=== PATIENT | male | born 1995 | race African-American/Black ===

== ENCOUNTER → 2020-10-01 | Emergency (ER) | payer MEDICAID ==
[~2020-10-01] VITALS: Ht 172.7 cm; Wt 70.3 kg
[~2020-10-01] MED LIST: MORPHINE SULFATE 4 MG/ML SYR/VIAL IV ONE; NALOXONE HCL 0.4 MG/ML VIAL ONE; ONDANSETRON HCL 4 MG/2 ML VIAL IV ONE
[2020-10-01 05:43] LABS: Basophils # (auto) 0 10 ^3/uL (0-0.2); Basophils % (auto) 0.2 % (0.0-2.0); Eosinophils # (auto) 0 10 ^3/uL (0-0.8); Eosinophils % (auto) 0.1 % (0.0-7.0); Hematocrit 49.2 % (41.0-53.0); Hemoglobin 16.8 g/dL (13.5-17.5); Lymphocytes # (auto) 0.6 10 ^3/uL (0.4-5.4); Lymphocytes % (auto) 5.7 % (10.0-50.0); Mean Corpuscular Hemoglobin 29.3 pg (28.0-32.0); Mean Corpuscular Hgb Conc. 34.2 g/dL (32.0-36.0); Mean Corpuscular Volume 85.5 fL (80.0-100.0); Monocytes # (auto) 0.8 10 ^3/uL (0-1.3); Monocytes % (auto) 7.3 % (0.0-12.0); Neutrophils % (auto) 86.7 % (37.0-80.0); Red Blood Cells 5.75 10^6/uL (4.5-5.90); Red Cell Distribution Width 15.4 % (11.8-14.3); White Blood Cell 10.3 10^3/uL (4.4-10.8)
[2020-10-01 06:14] LABS: Albumin 4.6 g/dL (3.4-5.0); Calcium 8.9 mg/dL (8.5-10.1); Magnesium 2.6 mg/dL (1.6-2.6); Potassium 3.7 mmol/L (3.5-5.1)
[2020-10-01 06:22] LABS: INR 1.19 (0.9-1.15); Partial Thromboplastin Time 25.4 sec (23.0-31.2)
[2020-10-01 06:23] LABS: Bilirubin, Total 2.1 mg/dL (0.2-1.0); Total Protein 8.9 g/dL (6.4-8.2)
[2020-10-01 07:37] VITALS: BP 116/64
== END | disposition home or self-care (01) ==
LOC: EDUNIT# 03:34 → EDBD 03:43 → ER 03:43
DX: S30.1XXA Contusion of abdominal wall, initial encounter (principal); S36.22 Contusion of pancreas; K66.1 Hemoperitoneum; F17.210 Nicotine dependence, cigarettes, uncomplicated; F12.10 Cannabis abuse, uncomplicated; R51.9 Headache, unspecified; Z20.822 Contact with and (suspected) exposure to COVID-19; V49.9XXA Car occupant (driver) (passenger) injured in unspecified traffic accident, initial encounter; Y93.89 Activity, other specified; Y92.488 Other paved roadways as the place of occurrence of the external cause; Y99.8 Other external cause status
CPT/HCPCS: 36415; 70450; 71250; 72125; 74176; 80053; 83735; 84484; 85025; 85379; 85610; 85730; 87426; 93005; 96374; 96375; 96376; 99285; J2270; J2310; J2405

== ENCOUNTER 2023-08-23 00:46 | Emergency (ER) | payer MEDICAID ==
[~2023-08-23] VITALS: Ht 167.6 cm; Wt 65.0 kg
[2023-08-23 00:52] VITALS: BP 122/76; PULSE 78; RESP 20; O2SAT 99
[2023-08-23 04:24] LABS: Basophils # (auto) 0 10 ^3/uL (0-0.2); Eosinophils # (auto) 0.2 10 ^3/uL (0-0.8); Hemoglobin 17.9 g/dL (13.5-17.5); Lymphocytes # (auto) 0.2 10 ^3/uL (0.4-5.4); Lymphocytes % (auto) 1.4 % (10.0-50.0); Neutrophils % (auto) 90.2 % (37.0-80.0); Nucleated Red Blood Cells % 0.1 %
[2023-08-23 04:25] LABS: Basophils % (auto) 0.1 % (0.0-2.0); Eosinophils % (auto) 1.2 % (0.0-7.0); Hematocrit 54.1 % (41.0-53.0); Monocytes % (auto) 7.1 % (0.0-12.0); Neutrophils # (auto) 13.1 10 ^3/uL (1.6-8.6); Red Blood Cells 5.94 10^6/uL (4.5-5.90); Red Cell Distribution Width 15.8 % (11.8-14.3); White Blood Cell 14.5 10^3/uL (4.4-10.8)
[2023-08-23 04:48] LABS: Alanine Aminotransferase 15 U/L (7-40); Alkaline Phosphatase 83 U/L (46-116); Anion Gap 8 (5-15); Aspartate Aminotransferase 21 U/L (13-40); BUN/Creatinine Ratio 7.1 (10.0-20.0); Blood Urea Nitrogen 9 mg/dL (9-23); Calcium 9.5 mg/dL (8.7-10.4); Carbon Dioxide 24 mmol/L (20-30); Chloride 107 mmol/L (98-107); Glucose 94 mg/dL (74-106); Lipase 40 U/L (12-53); Sodium 139 mmol/L (136-145)
[2023-08-23 04:49] LABS: Albumin 4.6 g/dL (3.2-4.8); Bilirubin, Total 1.2 mg/dL (0.2-1.0); Total Protein 7.9 g/dL (5.7-8.2)
== END 2023-08-23 06:10 | disposition left against medical advice (07) ==
LOC: EDBD 00:46 → ER 00:46
DX: R10.12 Left upper quadrant pain (principal); R11.2 Nausea with vomiting, unspecified; Z53.21 Procedure and treatment not carried out due to patient leaving prior to being seen by health care provider
CPT/HCPCS: 36415; 74176; 80053; 83690; 85025